=== PATIENT | male | born 1980 | race Caucasian/White ===

== ENCOUNTER 2017-06-09 10:14 | Day surgery (SDC) | payer OTHER ==
[~2017-06-09] VITALS: Ht 170.2 cm; Wt 96.1 kg
[2017-06-09 10:41] VITALS: BP 122/81
[2017-06-09] MEDS ORDERED: LACTATED RINGERS 1,000 ML IV SCH (10:45)
[2017-06-09] MEDS ORDERED: NONE PER PT (10:46)
[2017-06-09] MEDS ORDERED: LIDOCAINE 1%, 2ML SQ PRN (11:00)
[2017-06-09] MEDS ORDERED: MIDAZOLAM 1 MG/ML, 2ML ONE (11:48)
[2017-06-09] MEDS ORDERED: FENTANYL PF 100 MCG/2ML ONE (11:48)
[2017-06-09] MEDS ORDERED: ALBUTEROL SULFATE 2.5 MG/3 ML NPPB PRN (12:00)
[2017-06-09] MEDS ORDERED: ACETAMINOPHEN 325 MG TABLET PO PRN (12:00)
[2017-06-09] MEDS ORDERED: OXYcodone 5 MG/5 ML ORAL.SOL UDC PO PRN (12:00)
[2017-06-09] MEDS ORDERED: EPHEDRINE 50 MG/ML, 1ML IVPush PRN (12:00)
[2017-06-09] MEDS ORDERED: ONDANSETRON 2MG/ML, 2ML IVPush PRN (12:00)
[2017-06-09] MEDS ORDERED: LABETALOL 5MG/ML, 20ML IV PRN (12:00)
[2017-06-09] MEDS ORDERED: PROMETHAZINE 25 MG/ML, 1ML IV PRN (12:00)
[2017-06-09] MEDS ORDERED: FENTANYL PF 100 MCG/2ML IV PRN (12:00)
[2017-06-09] MEDS ORDERED: HYDROmorphone 1 MG/ML, 1ML IV PRN (12:00)
[2017-06-09] MEDS ORDERED: hydrALAzine 20 MG/ML, 1ML IV PRN (12:00)
[2017-06-09] MEDS ORDERED: METOPROLOL 1 MG/ML, 5ML IV PRN (12:00)
[2017-06-09] MEDS ORDERED: MEPERIDINE/PF 25MG/0.5ML IVPush PRN (12:00)
[2017-06-09] MEDS ORDERED: PROPOFOL 10 MG/ML, 20ML ONE (12:24)
== END 2017-06-09 14:50 | disposition home or self-care (01) ==
LOC: OUT 10:14
PROVIDERS: ATTEND Surgery
DX: K62.5 Hemorrhage of anus and rectum (principal)
CPT/HCPCS: 45378; J2250; J2704; J3010; J3490; J7120